=== PATIENT | male | born 2000 | race Hispanic/Latino ===

== ENCOUNTER 2024-12-30 15:39 | Emergency (ER) | payer SELFPAY ==
[2024-12-30] MEDS ORDERED: HYDROcodone/Acetaminophen 5/325 mg Tablet ONE (16:32)
== END 2024-12-30 16:56 | disposition home or self-care (01) ==
LOC: CSHERS 15:39
DX: S82.831A Other fracture of upper and lower end of right fibula, initial encounter for closed fracture (principal); F17.290 Nicotine dependence, other tobacco product, uncomplicated; F17.210 Nicotine dependence, cigarettes, uncomplicated; W01.0XXA Fall on same level from slipping, tripping and stumbling without subsequent striking against object, initial encounter; Y93.71 Activity, boxing
CPT/HCPCS: 27786

== ENCOUNTER 2025-02-10 16:26 | Emergency (ER) | payer SELFPAY | END 2025-02-10 18:28 | disposition home or self-care (01) | LOC: CSHERS 16:26 | DX: S82.831D Other fracture of upper and lower end of right fibula, subsequent encounter for closed fracture with routine healing (principal); F17.290 Nicotine dependence, other tobacco product, uncomplicated; F17.210 Nicotine dependence, cigarettes, uncomplicated; W19.XXXD Unspecified fall, subsequent encounter | CPT/HCPCS: 29515 ==